=== PATIENT | female | born 1950 | race Caucasian/White ===

== ENCOUNTER 2017-03-23 19:27 | Emergency (ER) | payer MEDICARE ==
[~2017-03-23 19:27] MED LIST: Iopamidol 370 76% 100 ML VIAL ONE
[2017-03-23 20:33] LABS: #Basophils 0.2 thou/uL (0.0-0.2); #Eosinphils 0.3 thou/uL (0.0-0.7); #Lymphocytes 2.5 thou/uL (1.20-3.40); #Monocytes 0.9 thou/uL (0.11-0.59); #Neutrophils 5.1 thou/uL (1.40-6.50); %Basophils 1.9 % (0.0-1.0); %Eosinophils 3.9 % (0.0-10.0); %Lymphocytes 27.4 % (21.0-51.0); %Monocytes 9.5 % (0.0-10.0); %Neutrophils 57.3 % (42.0-75.0); Hemoglobin 16.9 g/dL (12.0-16.0); Mean Corpuscular HGB CONC 33.3 g/dL (32.0-36.0); Mean Corpuscular Hemoglobin 29.6 pg (27.0-31.0); Mean Corpuscular Volume 88.9 fl (81.0-99.0); Mean Platelet Volume 8.6 fL (7.4-10.4); Platelet Count 231 thou/uL (130-400); RBC Distribution Width 10.8 % (11.5-14.5); Red Blood Cell (RBC) Count 5.72 mill/uL (4.20-5.40)
[2017-03-23 20:34] LABS: Bilirubin Negative (Negative); Blood, Urine Negative (Negative); Clarity Slightly Cloudy (Clear); Glucose, Urine (Dipstick) Negative (Negative); Leukocyte Trace (Negative); Nitrite Negative (Negative); Protein, Urine (Dipstick) Negative (Neg-Trace); Urobilinogen 0.2 mg/dL (0.2-1.0); pH, Urine 5.5 (5.0-9.0)
[2017-03-23 20:40] LABS: Prothrombin Time 12.8 SEC (12.0-14.7)
[2017-03-23 20:41] LABS: Bacteria/HPF 2+ HPF (None Seen); RBC/HPF 0-3 HPF (0-3)
[2017-03-23 20:52] LABS: ALT (SGPT) 38 U/L (8-55); AST (SGOT) 27 U/L (5-34); Albumin 4.3 g/dL (3.4-4.8); Alkaline Phosphatase 66 U/L (40-150); Anion Gap 15 mmol/L (10-20); BUN (Urea Nitrogen) 19 mg/dL (9.8-20.1); Bilirubin, Total 0.5 mg/dL (0.2-1.2); Calc. Creatinine Clearance 0 mL/min (70-130); Calcium 9.7 mg/dL (7.8-10.44); Carbon Dioxide 25 mmol/L (23-31); Chloride 106 mmol/L (98-107); Estimated GFR-MDRD 53; Globulin 2.9 g/dL (2.4-3.5); Glucose 102 mg/dL (80-115); Lipase 35 U/L (8-78); Magnesium 2.2 mg/dL (1.6-2.6); Potassium 3.7 mmol/L (3.5-5.1); Protein, Total 7.2 g/dL (6.0-8.3); Sodium 142 mmol/L (136-145)
--- NOTE | 2017-03-24 00:01 | CT ---
CT OF ABDOMEN AND PELVIS WITH CONTRAST 03/23/17 Reference is made to 07/24/14. INDICATION: Abdominal pain. FINDINGS: Redemonstration of punctate left nephrolithiasis. There is excreted contrast media within portions of the urinary collection system which does limit evaluation for nephrolithiasis. No obstructive uropat hy. There are granulomatous calcifications within the spleen. Liver is unremarkable. No acute peripan creatic inflammation. Adrenal glands are normal in appearance. There is mild vascular calcification. There is atelectasis of the incidentally imaged lung bases. No evidence of small bowel obstruction. T here is eventration of ventral abdominal wall near the umbilicus. No free air or portal venous gas. T here is a nonspecific sclerotic focus of the posterior aspect of the right ilium, stable. IMPRESSION: No interval acute abnormality identified on the abdomen or pelvis. Redemonstration of nonobstructive punctate left nephrolithiasis. POS: [facility]
== END 2017-03-23 22:57 | disposition home or self-care (01) ==
LOC: SCSER 19:27
DX: R10.31 Right lower quadrant pain (principal); G43.909 Migraine, unspecified, not intractable, without status migrainosus
CPT/HCPCS: 74177; 80053; 81003; 81015; 83605; 83690; 83735; 85025; 85610; 87045; 87046; 87449; 87899; 96360

== ENCOUNTER 2017-04-10 14:07 | Outpatient (CLI) | payer MEDICARE ==
[~2017-04-10 14:07] MED LIST changes: +Gadobenate Dimeglumine 529 MG/1 ML (20ML VIAL) ONE; -Iopamidol 370 76% 100 ML VIAL ONE
--- NOTE | 2017-04-10 16:03 | RAD ---
FIVE VIEWS CERVICAL SPINE: INDICATIONS: Cervical radiculopathy. COMPARISON: 05/23/2013 FINDINGS: Since the comparison examination, there has been performance of an ACDF, spanning C4-C5. Previously seen instrumentation at C5-C6 has been removed. There is solid osseous incorporation of the bone gra ft at C5-C6. There is advanced multilevel facet osteoarthritic change. There is straightening of th e normal cervical lordosis. Prominent disk degenerative disease is seen at C3-C4, C5-C6, and C6-C7. Very slight anterior translation is seen on C3 on C4. There is slight anterior translation of C7 on T1. The translation of C3 on C4 reduces with neutral and extension positioning. The anterior trans lation of C7 on T1 is stable on the flexion and extension lateral projection. Prevertebral soft tiss ues are normal. The lateral masses are symmetric. IMPRESSION: 1. Post surgical changes of the cervical spine with revision of the previously seen anterior cervica l diskectomy and fusion. 2. Anterior cervical diskectomy and fusion now spans C4 and C5. There is solid osseous incorporatio n of bone graft at C5-C6. 3. Slight anterior translation of C3 on C4, accentuated with flexion, but reduces with neutral and e xtension positioning. 4. Mild anterior translation of C7 on T1 that appears stable on the flexion and extension dynamic la teral projection. POS: [facility]
--- NOTE | 2017-04-10 16:12 | CT ---
CT CERVICAL SPINE WITHOUT CONTRAST: INDICATION: History of neck pain with radiation to the left shoulder with tingling and numbness in the left hand. COMPARISON: Prior CT of the cervical spine dated 03/03/14. FINDINGS: The ACDF spanning C4-5 does not appear appreciably changed from the comparison. There is solid osseo us incorporation of the interbody bone graft of C4-5 and C5-6. Prior ACDF screws are seen at C5. At C2-C3, there is no appreciable osseous central canal narrowing. There is severe right and moderat e left facet joint degenerative change inducing stable severe right neural foraminal narrowing. At C3-4, there is severe left and moderate right facet joint degenerative change. There is uncoverte bral hypertrophy inducing at least stable severe left neural foraminal narrowing and mild right neura l foraminal narrowing. At C4-5, there is no appreciable osseous central canal or neural foraminal narrowing. At C5-6, there is no appreciable osseous central canal or neural foraminal narrowing. At C6-7, there is no appreciable osseous central canal or neural foraminal narrowing. C7-T1, there is no appreciable osseous central canal or neural foraminal narrowing. There is mild pleural parenchymal scarring involving both lung apices. No definite pathologically enlarged lymph node is evident. Craniocervical junction is normal appeari ng. IMPRESSION: 1. Stable neural foraminal narrowing is seen on the right at C2-3 and on the left at C3-4. 2. Solid osseous incorporation of the bone graft at C4 through C6. 3. Stable anterior cervical diskectomy and fusion at C4-5. POS: [facility]
--- NOTE | 2017-04-10 18:47 | MRI ---
MRI OF THE CERVICAL SPINE WITH AND WITHOUT IV CONTRAST: Indication: Cervical radiculopathy with radiation to the left shoulder. Numbness in left hand. Contrast: 4 cc of MultiHance. Comparison: CT cervical spine, 04-10-17. FINDINGS: There is an ACDF plate spanning C4 through C5. There are intervertebral plates seen at C4-5 and C5-6. The visualized posterior fossa is unremarkable. C2-3: There is an asymmetric to the right disc osteophyte complex with uncovetebral hypertrophy and f acet joint degenerative inducing severe right neural foraminal narrowing. C3-4: There is severe left facet joint degenerative change and uncal vertebral hypertrophy inducing s evere left neural foraminal narrowing. C4-5: There is no appreciable central canal or neural foraminal narrowing. C5-6: There is no appreciable central canal or neural foraminal narrowing. C6-7: There is no appreciable central canal or neural foraminal narrowing. C7-T1: There is no appreciable central canal or neural foraminal narrowing demonstrated. The spinal cord demonstrates normal signal intensity caliber. No definite area of abnormal enhancement is demonstrated. IMPRESSION: 1. C2-3 and C3-4 severe neural foraminal narrowing. 2. ACDF spanning C4 through C5 with intervertebral cages seen at C4-5 and C5-6. 3. No definite abnormal enhancement demonstrated. POS: [facility]
== END 2017-04-10 14:08 | disposition home or self-care (01) ==
LOC: TBSIIMAG 14:07
PROVIDERS: ATTEND Surgery
DX: M54.12 Radiculopathy, cervical region (principal); M99.51 Intervertebral disc stenosis of neural canal of cervical region; Z98.1 Arthrodesis status
CPT/HCPCS: 72050; 72125; 72156; A9579

== ENCOUNTER 2018-03-09 12:45 | Outpatient (CLI) | payer MEDICARE ==
--- NOTE | 2018-03-09 14:14 | RAD ---
BARIUM SWALLOW ESOPHAGRAM: HISTORY: Dysphagia. COMPARISON: None. FINDINGS: [employer] chest radiograph shows a normal cardiac silhouette. The pulmonary vessels and hilum are normal . Blunting of the right costophrenic angle may be due to small effusion or atelectasis. The left co stophrenic angle is clear. No pneumothorax or osseous abnormalities. Cervical fusion hardware is no lulu. The cervical and thoracic esophagus have an overall normal course and caliber. No evidence of a mucosal abnormality. No evidence of reflux during intermittent fluoroscopy. A hiatal hernia is no t appreciated. There is evidence of penetration with thick barium; therefore, thin barium was not ad ministered. The patient swallowed a standard 13 mm barium tablet without difficulty. IMPRESSION: 1. Penetration without evidence of aspiration when ingesting thick barium. The remainder of the bear dy was discontinued, and thin barium was not given due to the presence of penetration. Further evalu ation with a modified barium swallow, in the presence of a speech pathologist is recommended. 2. No evidence of reflux during intermittent fluoroscopy. POS: [facility]
== END 2018-03-09 12:46 | disposition home or self-care (01) ==
LOC: RAD 12:45
PROVIDERS: ATTEND Physician Assistant Medical
DX: K21.0 Gastro-esophageal reflux disease with esophagitis (principal); R13.10 Dysphagia, unspecified
CPT/HCPCS: 74220

== ENCOUNTER 2018-03-19 10:56 | Outpatient (CLI) | payer MEDICARE ==
--- NOTE | 2018-03-20 14:42 | RAD ---
MODIFIED BARIUM SWALLOW: HISTORY: Dysphagia. Difficulty swallowing. Feeding difficulties. TECHNIQUE: Exam was performed by speech pathology with multiple consistencies. FINDINGS: Video review was available and demonstrated good bolus formation and retropulsion. Good initiation o f swallowing. Minimal penetration with the thinner liquids. A small amount of pooling. Good clearance upon secondary swallowing. No aspiration is visible. Postoperative changes of the cervical spine are evident without significan t compromise of the esophageal lumen demonstrated. The esophagus, below the level of the hypopharynx, was not evaluated. Please see separate detailed r eport from speech pathology. FLUOROSCOPY TIME: 16 seconds. POS: [facility]
== END 2018-03-19 10:57 | disposition home or self-care (01) ==
PROVIDERS: ATTEND Internal Medicine Gastroenterology
DX: R13.10 Dysphagia, unspecified (principal); R63.3 Feeding difficulties
CPT/HCPCS: 74230

== ENCOUNTER → 2018-03-28 | Day surgery (SDC) | payer MEDICARE | LOC: SDC 07:29 | PROVIDERS: ATTEND Internal Medicine Gastroenterology | DX: K21.9 Gastro-esophageal reflux disease without esophagitis (principal); R13.10 Dysphagia, unspecified; Z88.2 Allergy status to sulfonamides; Z88.5 Allergy status to narcotic agent; Z79.899 Other long term (current) drug therapy | CPT/HCPCS: 91010; 91034 ==

== ENCOUNTER 2021-03-01 14:02 | Outpatient (CLI) | payer MEDICARE | END 2021-03-01 14:03 | disposition home or self-care (01) | LOC: BICMAMMO 14:02 | PROVIDERS: ATTEND Family Medicine | DX: Z12.31 Encounter for screening mammogram for malignant neoplasm of breast (principal); Z98.82 Breast implant status | CPT/HCPCS: 77063; 77067 ==

== ENCOUNTER 2021-08-04 12:12 | Outpatient (CLI) | payer MEDICARE, OTHER | END 2021-08-04 12:13 | disposition home or self-care (01) | LOC: TBSIIMAG 12:12 | PROVIDERS: ATTEND Family Medicine | DX: M51.16 Intervertebral disc disorders with radiculopathy, lumbar region (principal); M48.061 Spinal stenosis, lumbar region without neurogenic claudication | CPT/HCPCS: 72148 ==

== ENCOUNTER 2021-11-01 13:08 | Outpatient (CLI) | payer MEDICARE, OTHER ==
[2021-11-01 14:35] LABS: Hemoglobin 15.4 g/dL (12.0-15.5); Mean Corpuscular HGB CONC 34.7 g/dL (32.0-36.0); Mean Corpuscular Hemoglobin 30.7 pg (27.0-33.0); Mean Corpuscular Volume 88.6 fl (81.6-98.3); Mean Platelet Volume 11.4 fl (7.4-10.4); Platelet Count 261 10x3/uL (150-450); RBC Distribution Width 12.3 % (11.5-14.5); Red Blood Cell (RBC) Count 5.01 10x6/uL (3.90-5.03); White Blood Cell (WBC) Count 9.2 10x3/uL (3.5-10.5)
[2021-11-01 14:41] LABS: PTT 24.6 sec (22.0-33.0); Prothrombin Time 10.4 sec (9.5-12.1)
[2021-11-01 14:47] LABS: Anion Gap 16 mmol/L (10-20); BUN (Urea Nitrogen) 20 mg/dL (9.8-20.1); Calc. Creatinine Clearance 0 mL/min (70-130); Calcium 9.6 mg/dL (7.8-10.44); Carbon Dioxide 21 mmol/L (23-31); Chloride 107 mmol/L (98-107); Estimated GFR 66; Glucose 105 mg/dL (80-115); Potassium 3.7 mmol/L (3.5-5.1); Sodium 140 mmol/L (136-145)
== END 2021-11-01 13:09 | disposition home or self-care (01) ==
LOC: LABBT 13:08
PROVIDERS: ATTEND Surgery
DX: Z01.818 Encounter for other preprocedural examination (principal); Z20.822 Contact with and (suspected) exposure to COVID-19
CPT/HCPCS: 80048; 85027; 85610; 85730; 87811; 93005; 93010

== ENCOUNTER 2021-11-04 10:21 | Observation (INO) | payer MEDICARE, OTHER ==
[2021-11-03 10:10] VITALS: BMI 21.7
[2021-11-04] MEDS ORDERED: Thrombin 5000 UNITS/5 ML VIAL ONE (10:33)
[2021-11-04] MEDS ORDERED: SUGAMMADEX SODIUM 200 MG/2 ML VIAL ONE ×2 (10:44→13:32)
[2021-11-04] MEDS ORDERED: fentaNYL Citrate/PF 100 MCG/2 ML SYRINGE ONE (10:44)
[2021-11-04] MEDS ORDERED: Famotidine/PF 20 mg/2ml Vial ONE (10:45)
[2021-11-04] MEDS ORDERED: Sodium Chloride 0.9% 100 ML ONE (11:02)
[2021-11-04] MEDS ORDERED: CEFAZOLIN 2 GM VIAL ONE (11:02)
[2021-11-04] MEDS ORDERED: Lidocaine 1% MPF 2 ML VIAL ONE (11:19)
[2021-11-04] MEDS ORDERED: Ondansetron PF 4 MG/2 ML Vial ONE (11:19)
[2021-11-04] MEDS ORDERED: Metoclopramide HCl 10 MG/2 ML VIAL ONE (11:19)
[2021-11-04] MEDS ORDERED: Ketorolac Tromethamine 30 MG/ML VIAL ONE (11:19)
[2021-11-04] MEDS ORDERED: Dexamethasone 20 MG/5 ML VIAL ONE (11:19)
[2021-11-04] MEDS ORDERED: ePHEDrine 50 MG/ML VIAL ONE (11:19)
[2021-11-04] MEDS ORDERED: Rocuronium Bromide 10 MG/ML (10ML VIAL) ONE (11:19)
[2021-11-04] MEDS ORDERED: PROPOFOL 200 MG/20 ML VIAL ONE (11:19)
[2021-11-04] MEDS ORDERED: Phenylephrine 10 MG/ML VIAL ONE (11:19)
[2021-11-04] MEDS ORDERED: Morphine 2 MG/ML VIAL SLOW IVP PRN (13:37)
[2021-11-04] MEDS ORDERED: traMADol HCl 50 MG TAB PO PRN ×2 (13:37)
[2021-11-04] MEDS ORDERED: diphenhydrAMINE 25 MG CAP PO PRN (13:37)
[2021-11-04] MEDS ORDERED: Ondansetron PF 4 MG/2 ML Vial IVP PRN (13:37)
[2021-11-04] MEDS ORDERED: Acetaminophen 325 MG TAB PO PRN (13:37)
[2021-11-04] MEDS ORDERED: tiZANidine HCl 4 MG TAB PO PRN (13:39)
[2021-11-04] MEDS ORDERED: hydrALAZINE 20 MG/ML VIAL SLOW IVP PRN (13:41)
[2021-11-04] MEDS ORDERED: Fentanyl 100 MCG/2 ML VIAL ONE ×3 (13:43→14:26)
[2021-11-04] MEDS ORDERED: Meperidine HCl/PF 25 MG/ML VIAL SLOW IVP PRN (13:47)
[2021-11-04] MEDS ORDERED: Promethazine HCl 25 MG/ML VIAL IVPB PRN (13:47)
[2021-11-04] MEDS ORDERED: Ondansetron HCl/PF 4 MG/2 ML Vial IVP PRN (13:47)
[2021-11-04] MEDS ORDERED: Promethazine HCl 25 MG/ML VIAL IM PRN (13:47)
[2021-11-04] MEDS ORDERED: SUMAtriptan Succinate 50 MG TAB PO PRN (14:55)
[2021-11-04] MEDS: Sodium Chloride 0.9% 1,000 ML IV SCH (15:58)
[2021-11-04] MEDS: HYDROcodone/Acetaminophen 7.5/325 mg Tablet PO PRN ×2 (16:51→23:52)
[2021-11-04] MEDS: CEFAZOLIN 2 GM in Sodium Chloride 0.9% 100 ML IVPB SCH (20:51)
[2021-11-04] MEDS ORDERED: Progesterone,Micronized 100 MG CAP PO SCH (21:00)
[2021-11-04] MEDS ORDERED: Loratadine 10 MG TAB PO SCH (21:00)
[2021-11-05] MEDS: Sodium Chloride 0.9% 1,000 ML IV SCH (02:39)
[2021-11-05] MEDS: CEFAZOLIN 2 GM in Sodium Chloride 0.9% 100 ML IVPB SCH (03:58)
[2021-11-05] MEDS ORDERED: Levothyroxine Sodium 125 MCG TAB PO SCH (06:00)
[2021-11-05] MEDS: HYDROcodone/Acetaminophen 7.5/325 mg Tablet PO PRN (06:52)
[2021-11-05] MEDS ORDERED: Venlafaxine XR 37.5 MG CAP PO SCH (09:00)
[2021-11-05] MEDS ORDERED: Cholecalciferol 1,000 UNITS (25 MCG) TAB PO SCH (09:00)
[2021-11-05 10:25] VITALS: BP 114/66; TEMP 98.7
== END 2021-11-05 11:05 | disposition home or self-care (01) ==
LOC: SDC 10:21 → SURG A 13:37
PROVIDERS: ADMIT Surgery; ATTEND Surgery
PROC: 01NB0ZZ Release Lumbar Nerve, Open Approach (ICD-10-PCS; principal; 2021-11-04)
DX: M48.062 Spinal stenosis, lumbar region with neurogenic claudication (principal); G47.33 Obstructive sleep apnea (adult) (pediatric); M85.80 Other specified disorders of bone density and structure, unspecified site; Z79.1 Long term (current) use of non-steroidal anti-inflammatories (NSAID); Z79.890 Hormone replacement therapy; Z79.899 Other long term (current) drug therapy; Z88.1 Allergy status to other antibiotic agents; Z88.2 Allergy status to sulfonamides; Z88.5 Allergy status to narcotic agent; Z98.1 Arthrodesis status
CPT/HCPCS: 76000; 96374; 96376; G0378; J0690; J1100; J1885; J2370; J2405; J2704; J2765; J3010; J3370; J3490; S0028

== ENCOUNTER 2022-06-03 14:18 | Outpatient (CLI) | payer MEDICARE, OTHER | END 2022-06-03 14:19 | disposition home or self-care (01) | LOC: SCSMRI 14:18 | PROVIDERS: ATTEND Family Medicine | DX: M54.16 Radiculopathy, lumbar region (principal); M25.552 Pain in left hip; M16.12 Unilateral primary osteoarthritis, left hip; M48.07 Spinal stenosis, lumbosacral region; Z98.890 Other specified postprocedural states | CPT/HCPCS: 72148 ==